=== PATIENT | male | born 1975 | race Caucasian/White ===

== ENCOUNTER 2019-10-08 00:05 | Emergency (ER) | payer SELFPAY ==
[2019-10-08 00:07] VITALS: BP 134/90; PULSE 78; RESP 18; TEMP 36.8; O2SAT 98; BMI 26.9
--- NOTE | 2019-10-08 00:25 | ED.VIS.GEN ---
History of Present Illness Chief Complaint: Abd Pain Informant: Patient Narrative: Stated approximately 5 hours ago he had epigastric abdominal pain. He had 3 episodes of emesis. He describes a sharp and dull pain in the epigastric region. No radiation. Never had this before. Tried Tums with minimal relief. Current severity is moderate. Normal bowel movements. He feels a lot of bowel gas. No bad food exposures. No sick contacts. No previous abdominal surgeries. Worsened by nothing. Relieved by nothing. - Past Medical History (1) HTN (hypertension) Status: Acute (2) Peritonsillar abscess Status: Acute (3) Pharyngitis Status: Acute (4) Tachycardia Status: Acute (5) Urinary retention Status: Acute Past Medical History - Allergies and Home Meds Allergies/Adverse Reactions: Allergies No Known Allergies Allergy (Verified 10/08/19 00:09) Primary Care Physician: Care Physician,No Primary [Primary Care Provider] - Prior records reviewed: Yes Past Medical History: - - See problem list Surgical History: - - Tonsillar abscess Smoking Status: Light Smoker (<10/day) Alcohol: None Drugs: None - Family History Maternal Family History: Reports: No pertinent history Sibling Family History: Reports: No pertinent history Review of Systems General: Denies: Chills, Fever, Sweats Eyes: Denies: Visual changes - bilaterally, Diplopia ENT: Denies: Rhinorrhea, Sore throat Cardiovascular: Denies: Chest pain, Palpitations Respiratory: Reports: -. Denies: Dyspnea, Cough, Dyspnea on exertion Gastrointestinal: Reports: Abdominal pain, Nausea, Vomiting. Denies: Diarrhea, Melena, Hematochezia Genitourinary: Denies: Dysuria, Hematuria, Frequency Musculoskeletal: Denies: Back pain, Extremity Pain Skin: Denies: Rash, Wounds Neurological: Denies: Headache, Weakness, Numbness Physical Exam Vital Signs/Narrative: Vital Signs Temp Pulse Resp BP Pulse Ox 10/08/19 00:07 98.3 F 78 18 134/90 H 98 General: Well nourished, Well developed, No Acute Distress Head: Normocephalic, Atraumatic Eyes: Perrl, EOMI ENT: Moist mucous membranes, No rhinorrhea Neck: Supple, Nontender Cardiovascular: Regular rate, Regular rhythm, No murmurs Respiratory: No distress, CTA bilaterally, Chest nontender Abdomen: Soft, Nondistended, Normal bowel sounds, Tender - Tender to to palpation epigastric. No masses or hernia.. Negative for: Nontender, No masses, Guarding, Rebound tenderness, Hyperactive bowel sounds, Hypoactive bowel sounds, Hepatomegaly, Splenomegaly, Mass, Pulsatile mass, Ventral hernia, Inguinal hernia, Umbilical hernia, Hernia reducible, Hernia irreducible, Psoas sign, Obturator sign, Rovsig's sign, Mosley's sign, - Back: Nontender, Normal Inspection Extremities: Nontender, No edema Skin: Normal color, No rash Neurological: Alert, Oriented x3, Cranial nerves II-XII grossly intact, Normal Strength, Normal Sensation Psychological: Normal affect, Normal Mood Diagnostic/Tx/Re-eval - Medical Decision Making Patient given IV fluids morphine and Zofran. Lab work obtained. Lab work shows a white count of 17.5. Electrolytes liver function and lipase normal. CT abdomen pelvis shows findings could suggestive of enteritis. There is air-fluid levels in the small bowel without a transition point. No bowel obstruction. No inflammatory changes. On reevaluation the patient's pain is resolved. He is resting comfortably. No vomiting. Feels much better. At this time he will follow-up as an outpatient. I do not feel he needs antibiotics for this. This is likely viral in nature. Will return if he worsens ED Disposition - Plan for ED Patient: Disposition: Home or Assisted Living Diagnosis: Gastroenteritis Instructions: ED Food Poison Or Gastroenteritis Prescriptions: Dicyclomine HCl [Bentyl] 20 mg PO TIDAC #20 cap Prescription Printed Ondansetron [Zofran Odt] 8 mg PO Q8H PRN PRN #20 tab PRN Reason: Nausea Prescription Printed Referrals: Milind Rosario MD [STAFF PHYSICIAN] -
[2019-10-08] MEDS: Ondansetron 4 MG/2 ML Vial IV (00:31)
[2019-10-08] MEDS: 0.9% Normal Saline 1,000 ML 1000 ML IV (00:31)
[2019-10-08] MEDS: Morphine 4 MG/ML Syringe IV (00:32)
[2019-10-08 00:35] LABS: Absolute Lymphocyte Count 1.84 X10^3/uL (0.83-4.51); Absolute Neutrophil Count 14.4 X10^3/uL (2.0-7.7); Basophil# 0.04 X10^3/uL; Basophil% 0.2 % (0-1); Eosinophil# 0.15 X10^3/uL; Eosinophils% 0.9 % (0-5); Hematocrit 43.8 % (40-54); Hemoglobin 14.9 g/dL (13.0-16.5); Lymphocyte # 1.84 X10^3/ul (4.0); Lymphocyte % 10.5 % (19-41); Mean Corpuscular Hgb 30.3 pg (27.0-32.0); Mean Platelet Vol. 9.6 fl (6.2-12.0); Monocyte# 0.96 X10^3/uL; Monocyte% 5.5 % (0-10); NRBC Flagged by Analyzer 0 % (0-5); Neutrophil # 14.41 X10^3/uL (2.7-7.7); Neutrophil % 82.6 % (47-70); Platelet Count 284 K/mm3 (150-450); RBC Distribution Width CV 13.3 % (11.6-14.6); RBC Distribution Width SD 42.8 fl (35.1-43.9); Red Blood Count 4.92 M/mm3 (4.6-6.2); White Blood Count 17.5 K/mm3 (4.4-11.0)
[2019-10-08 01:20] LABS: ALB/GLOB Ratio 1.2 RATIO (0.9-2.4); AST(SGOT) 13 U/L (15-37); Alanine Aminotransfer ALT/SGPT 25 U/L (16-61); Albumin, Serum 4.6 g/dL (3.2-5.0); Alkaline Phosphatase 56 U/L (45-117); Anion Gap 6 (5-15); BUN 22 mg/dL (7-18); BUN/Creat Ratio 21.2 RATIO (10-20); Calcium,Total 9.4 mg/dL (8.5-10.1); Chloride 106 mmol/L (98-107); Creatinine, Serum 1.04 mg/dL (0.70-1.30); EST Glomerular Filtration Rate 82 mL/min (>60); Est Glom Filt Rate - Afr Amer 99 mL/min (>60); Estimated Creatinine Clearance 105.38 ml/min; Globulin 3.9 g/dL (2.2-4.2); Glucose 145 mg/dL (74-106); Lipase 79 U/L (73-393); Protein, Total 8.5 g/dL (6.4-8.2); Sodium Level 140 mmol/L (136-145)
--- NOTE | 2019-10-08 01:21 | CT_ITS ---
HISTORY: C/O LOWER ABD PAIN, UMBILICAL REGION X 6 HOURS WITH EMESIS X3 AND NAUSEA, GASSY, ELEVATED WBC TECHNIQUE: Helically acquired images were obtained of the abdomen and pelvis following the intravenous administration of ml of 100mL Isovue-300 Iodinated contrast. 2D reformats. No oral contrast was administered. A radiation dose optimization technique was used for this scan. COMPARISON: None FINDINGS: # of images incl. paperwork: 412 LUNG BASES: Clear. CT abdomen: Bones are unremarkable. The gallbladder remains. Liver, spleen, pancreas, and adrenal glands, are normal. Small hypodense lesion on the superior lateral aspect of the left kidney statistically represents a benign simple cyst. The right kidney is normal.. The aorta is normal. CT pelvis: No ascites is present. The prostate gland is not enlarged. The appendix is normal. Series 2 image 83. The bladder is mostly decompressed. There is abnormal fluid distention with air-fluid levels to many loops of small bowel. There is no direct transition. Some of this distention is also present within the terminal ileum. No focal bowel wall thickening is perceived. Some diverticulosis within the sigmoid colon. CT/Abdomen/Pelvis W IV Cont ONLY IMPRESSION: Findings suggestive of enteritis. Individualized dose optimization techniques were used for this CT. at 0231 Reported and signed by: Dejon Man MD Electronically Signed: Dejon Man MD at 2:30 EDT Tel , Service support ,
[2019-10-08 02:09] VITALS: RESP 16
[2019-10-08 02:52] VITALS: BP 122/79; PULSE 70; RESP 16; O2SAT 98
== END 2019-10-08 02:54 | disposition home or self-care (01) ==
PROVIDERS: Emergency Provider Emergency Medicine
DX: K52.9 Noninfective gastroenteritis and colitis, unspecified (principal); I10 Essential (primary) hypertension; F17.200 Nicotine dependence, unspecified, uncomplicated
CPT/HCPCS: 74177; 80053; 83690; 85025; 96361; 96374; 96375; 99283; J7030; Q9967; A4216; J2405

== ENCOUNTER 2020-01-01 17:14 | Emergency (ER) | payer SELFPAY ==
[2020-01-01 17:15] VITALS: BP 140/84; PULSE 84; RESP 15; TEMP 36.7; O2SAT 98; BMI 24.7
--- NOTE | 2020-01-01 17:55 | ED.VIS.GEN ---
History of Present Illness Chief Complaint: Abscess Informant: Patient Narrative: Patient presents to the emergency department for suspected abscess of his middle back. He has had abscesses before in the past but never in this location. He first noticed this about a week ago. Lying on it as well as sitting in a car makes his symptoms worse. He denies any systemic symptoms including any fever/chills or nausea/vomiting. The spot is not overly tender to palpation. He has not tried taking anything for this. He denies any known history of MRSA. He is not a diabetic. He does not feel like it has been getting much larger over the past week. Past Medical History - Allergies and Home Meds Allergies/Adverse Reactions: Allergies No Known Allergies Allergy (Verified 01/01/20 17:14) Primary Care Physician: Olya Way MD [Primary Care Provider] - Prior records reviewed: Yes Past Medical History: None Surgical History: - - Tonsillar abscess Smoking Status: Light Smoker (<10/day) - Family History Maternal Family History: Reports: No pertinent history Sibling Family History: Reports: No pertinent history Review of Systems All systems negative except as indicated General: Denies: Chills, Fever, Sweats Eyes: Denies: Visual changes - bilaterally ENT: Denies: Sore throat Cardiovascular: Denies: Chest pain, Palpitations Respiratory: Denies: Dyspnea, Cough, Dyspnea on exertion Gastrointestinal: Denies: Abdominal pain, Nausea, Vomiting Musculoskeletal: Denies: Back pain, Extremity Pain Skin: Denies: Rash, Wounds Neurological: Denies: Headache, Weakness, Numbness Physical Exam Vital Signs/Narrative: Vital Signs Temp Pulse Resp BP Pulse Ox 01/01/20 17:15 98.0 F 84 15 140/84 H 98 Inital Vital Signs reviewed: Yes General: Well nourished, Well developed, No Acute Distress Head: Normocephalic, Atraumatic Eyes: Perrl, EOMI ENT: Moist mucous membranes, No rhinorrhea Neck: Supple, Nontender Cardiovascular: Regular rate, Regular rhythm Respiratory: No distress, CTA bilaterally, Chest nontender Abdomen: Soft, Nondistended Back: Nontender, Normal Inspection Extremities: Nontender, No edema Skin: Normal color, No rash, - - Patient has what appears to be a lipoma. No significant tenderness with palpation. No overlying skin changes. It is freely movable. No significant fluctuation. It is approximately 2.5 cm in diameter. Located mid thoracic region. Neurological: Alert, Oriented x3 Psychological: Normal affect, Normal Mood Diagnostic/Tx/Re-eval - Medical Decision Making Patient presents to the ED for suspected abscess. I believe that this is a lipoma. Bedside ultrasound did not show any large fluid collection and was actually a more solid mass. It is freely movable. No significant tenderness. I did give him a referral for general surgeon for possible excision given his symptoms when lying and sitting on it. Otherwise patient be discharged home in stable condition. Warning signs and symptoms for which to return to the ED reviewed with him. He understands and is agreeable this plan. ED Disposition - Plan for ED Patient: Disposition: Home or Assisted Living Diagnosis: Lipoma of back Instructions: ED Lipoma No Tx Referrals: Olya Way MD [Primary Care Provider] - Fauzia Pope MD [STAFF PHYSICIAN] - As Needed
== END 2020-01-01 18:18 | disposition home or self-care (01) ==
LOC: ED 18:14
PROVIDERS: Emergency Provider Emergency Medicine; PCP Internal Medicine
DX: D17.1 Benign lipomatous neoplasm of skin and subcutaneous tissue of trunk (principal); F17.200 Nicotine dependence, unspecified, uncomplicated
CPT/HCPCS: 99282

== ENCOUNTER → 2020-01-22 | Outpatient (CLI) | payer MEDICAID, SELFPAY ==
[2020-01-01 17:15] VITALS: BMI 24.7
--- NOTE | 2020-01-22 16:38 | US_ITS ---
STUDY: RIGHT CHEST ULTRASOUND REASON FOR EXAM: Male, 44 years old. Painful mass in the left posterior chest wall. TECHNIQUE: Targeted ultrasound examination of the left posterior chest wall in the region of the palpable mass was performed. COMPARISON: None. FINDINGS: There is a 3.5 x 4 x 2.4 cm complex heterogeneous cystic lesion in the left posterior chest wall and corresponding to the palpable abnormality. US/Ext Non Vasc Limited/Soft Tiss IMPRESSION: Complex mass in the left posterior chest wall likely due to abscess or less likely hematoma. Electronically Signed: Pradeep Chen MD at 9:56 EDT Tel , Service support ,
== END | disposition home or self-care (01) ==
LOC: US 16:33
PROVIDERS: PCP Internal Medicine
DX: L98.9 Disorder of the skin and subcutaneous tissue, unspecified (principal)
CPT/HCPCS: 76882

== ENCOUNTER → 2020-01-26 | Outpatient (CLI) | payer MEDICAID, SELFPAY | END | disposition home or self-care (01) | LOC: LABSPEC 15:20 | PROVIDERS: PCP Internal Medicine; Referring Provider Surgery; Visit Provider Surgery | DX: L02.212 Cutaneous abscess of back [any part, except buttock and flank] (principal) | CPT/HCPCS: 87070; 87075; 87205 ==

== ENCOUNTER 2020-02-11 08:48 | Day surgery (SDC) | payer MEDICAID, SELFPAY ==
[2020-01-26 14:51] VITALS: BMI 24.4
--- NOTE | 2020-02-11 08:54 | HP.PCM_ITS ---
Problem List (1) Infected sebaceous cyst Status: Acute History of Present Illness Date of Admission: 02/11/20 The patient is a 44 year old M who presented to the office and had 2 drainages of this infected back cyst. The patient reports improvement but is still having some mild drainage and sebaceous material. Past Medical History Medical History: Medical History Peritonsillar abscess (Acute) J36 Tachycardia (Acute) R00.0 Urinary retention (Acute) R33.9 HTN (hypertension) (Acute) I10 Pharyngitis (Acute) J02.9 Allergies No Known Allergies Allergy (Verified 02/08/20 12:16) Home Medications: Ambulatory Orders Medication Instructions Recorded NK 01/01/20 Surgical History: Surgical History (Last Updated 01/26/20 @ 14:51 by Jacquie Mena) History of throat surgery Z98.890 Surgical History: - - Tonsillar abscess Smoking Status: Current every day smoker Tobacco Use: Cigarettes - *Family History Maternal History Items: No pertinent history Sibling History Items: No pertinent history Review of Systems Constitutional: Denies: Anorexia HEENT: Denies: Difficulty Swallowing Cardiovascular: Denies: Chest Pain Respiratory: Denies: Cough Gastrointestinal: Denies: Abdominal Pain Genitourinary: Denies: Dysuria Skin: Denies: Jaundice Neurological: Denies: Balance problems Psychiatric: Denies: Anxiety VTE Information - Inpt Only VTE Present on Admission: No VTE Mechan Device Prophylaxis: SCD's - Physical Exam Vitals/I&O's: Body Mass Index (BMI) 24.4 General: Alert, Oriented x3 Neck: No JVD Lungs: Normal air movement Cardiovascular: Regular rate, Regular Rhythm Abdomen: Soft, Non Tender, Non-Distended Skin: - - Sebaceous cyst on the mid back which has some inflammation Microbiology Past 72 Hours 02/10/20 16:40 Interface Orders - Final Current Medications Cefazolin Sodium 2 gm/ Sodium (Chloride) 110 mls @ 150 mls/hr IV PREOP ONE Stop: 02/11/20 10:53 Assessment/Plan All Active Problems Infected sebaceous cyst (Acute) Peritonsillar abscess (Acute) Tachycardia (Acute) Urinary retention (Acute) HTN (hypertension) (Acute) Pharyngitis (Acute) 44-year-old male with infected back cyst 1. Patient has an infected sebaceous cyst of the back. He has been drained twice in the office and has improved but it will not resolve and I recommend excision of the entire cyst. I recommended doing it in the operating room as it is quite large and deep. I discussed this with the patient in detail. I discussed the risks of bleeding and infection. I discussed loosely closing the incision to allow for drainage. The patient understands and will proceed with excision of infected sebaceous cyst in the operating room. Pee Dominguez MD Pager: [facility] [address] [place] [address] Office:
[2020-02-11 09:22] VITALS: BP 113/65; PULSE 63; RESP 16; TEMP 36.8; O2SAT 99; BMI 25.0
[2020-02-11] MEDS: Lactated Ringers 1,000 ML 100 ML IV (09:29)
--- NOTE | 2020-02-11 10:10 | CYST_PTH ---
PATIENT: UDAY FERNANDES [place] [facility] [place][id number] AGE/SX: 44/M ROOM: RE02/11/[address]: Dr. Pee Dominguez MD : 1975 BED: DIS: 02/11/2020 SPEC #: [id number] RECD: 02/11/20 10:59 STATUS: MARGY KAURDayna #: [id number] YULY: 02/11/20 10:[address]: Pee Dominguez DEPT: SURGICAL PATHOLOGY RECD BY: Cristofer Chen ENTERED: 02/11/20 11:24 SP TYPE: Cyst OTHR DR: Dr. Olya Way MD Tissues: CYST Procedures: Surgery Specimen Level III HEADER OPERATION: Back cyst excision PRE-OP DIAGNOSIS: Infected sebaceous cyst TISSUE SUBMITTED: Cyst wall and skin MICROSCOPIC DIAGNOSIS Cyst wall and skin: Pieces of skin with underlying tissue with acute and chronic inflammation and foreign body giant cell reaction. SJ:verna 02/12/20 COMMENT The findings may represent a ruptured and inflamed epidermal inclusion cyst. MICROSCOPIC DESCRIPTION Slides are reviewed. GROSS DESCRIPTION Received in fixative is one container labeled with the patient's name and designated cyst wall and skin. The specimen consists of two irregular fragments of jimenez-yellow fibrofatty tissue ranging in size from 3 to 4 cm. The largest fragments has an ellipse of unremarkable skin attached measuring 4 x 0.5 cm. Changer Fixer sections are submitted in two cassettes. / AM:verna 02/11/20 TC:5 CPT: 81146
[2020-02-11] MEDS: Cefazolin 2 GM in 0.9% Normal Saline 100 ML IV (10:13)
--- NOTE | 2020-02-11 10:49 | PCM.OPRPT ---
Problem List (1) Infected sebaceous cyst Status: Acute Report of Operation Date of Procedure: 02/11/20 Pre-Operative Diagnosis: Infected sebaceous cyst of the back Post-Operative Diagnosis: Same Surgery/Procedure Performed:: Excision of back cyst Specimen's removed: Back cyst Description of Procedure: Patient was brought back to the operating room and placed in prone position and MAC anesthesia was induced. An area around the cyst was marked and anesthetized with local anesthetic. Incision was made and skin was excised overlying the cyst and the cyst wall was excised sharply. The overlying skin measured approximately 4 cm. Hemostasis was obtained using electrocautery and the cavity was irrigated copiously and suctioned dry. The skin was closed with interrupted 3-0 Vicryl sutures as well as interrupted 3-0 nylon sutures. A bandage was applied and the patient was taken back in stable condition. - Admit VTE Documentation VTE Mechan Device Prophylaxis: SCD's
[2020-02-11 10:50] VITALS: BP 113/65; BP 134/87; PULSE 64; RESP 16; TEMP 36.4; O2SAT 98
[2020-02-11 10:55] VITALS: BP 113/65; BP 143/94; PULSE 56; RESP 16; O2SAT 98
--- NOTE | 2020-02-11 10:56 | PCM.DC ---
- Discharge Diagnoses Current Active Problems: Current Active and Chronic Problems Infected sebaceous cyst (Acute) You will use the following diet at home:: Regular Your food should be the consistency of: Regular Discharge Activity: No Restrictions, May Shower Call your doctor if your incision/area has: Continuous Slow Oozing, Sudden Increased Bleeding, Increased Pain/ Swelling, Increased Redness, Foul Smelling Discharge, Swelling at the incision site Call your doctor if you observe: Fever of 101 or Higher Allergies/Adverse Reactions: Allergies No Known Allergies Allergy (Verified 02/11/20 09:10) Medications to take at Discharge Oxycodone HCl/Acetaminophen [Percocet 5-325 mg Tablet] 1 tab PO Q6H PRN PRN 7 Days #15 tablet 02/11/20 The following prescriptions were given: Oxycodone HCl/Acetaminophen [Percocet 5-325 mg Tablet] 1 tab PO Q6H PRN PRN 7 Days #15 tablet PRN Reason: Pain Score 4-10/10 Transmission Status: Sent to [facility] Test Results: Test results from this visit will be discussed in further detail at your follow-up appointment, if applicable. Please Follow Up With: Pee Dominguez MD When: Please call to schedule 1 week follow up appointment. [phone]
[2020-02-11 11:00] VITALS: BP 113/65; BP 148/104; PULSE 59; RESP 16; O2SAT 99
[2020-02-11 11:05] VITALS: BP 113/65; BP 161/97; PULSE 58; RESP 16; TEMP 36.3; O2SAT 98
[2020-02-11] MEDS: oxyCODONE 5 MG Tablet PO (11:38)
[2020-02-11] MEDS: Acetaminophen 325 MG Tablet PO (11:38)
[2020-02-11 12:19] VITALS: BP 113/65; BP 137/100; PULSE 54; RESP 18; TEMP 36.6; O2SAT 100
== END 2020-02-11 12:20 | disposition home or self-care (01) ==
LOC: SDC 08:50 → AC 08:51
PROVIDERS: PCP Internal Medicine; Referring Provider Surgery; Visit Provider Surgery
PROC: (CPT 11404; principal; 2020-02-11 10:00)
DX: L72.3 Sebaceous cyst (principal); I10 Essential (primary) hypertension; F17.210 Nicotine dependence, cigarettes, uncomplicated
CPT/HCPCS: 00300; 11404; 87426; 88304; J7120; J2405

== ENCOUNTER 2020-04-01 10:35 | Emergency (ER) | payer MEDICAID, SELFPAY ==
[2020-04-01 10:37] VITALS: BP 133/88; PULSE 72; RESP 17; TEMP 36.7; O2SAT 100; BMI 24.9
--- NOTE | 2020-04-01 10:56 | ED.DCSUM_ITS ---
- ER Visit Summary Date of Service: 04/01/20 Chief Complaint: [Dog bite to left wrist] History of Present Illness: The patient is a 44 M [resents to the emergency department after sustaining a dog bite this morning to his left wrist. 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 Patient is right-hand dominant. Patient states that the dog appeared to have a collar and it did not appear ill. Patient states that he is walked at neighborhood many times in the past and is never seen the dog. The dog then was kicked and it ran off. Patient otherwise has no medical history.] Physical Examination: [HECRISTIN-PERRLA, EOMI. Cranial nerves II through XII grossly intact. TMs clear. Mucous membranes moist. No adenopathy. Cardiovascular-regular rate and rhythm without murmur or ectopy Lungs-clear to auscultation, chest wall stable without crepitus or subcu emphysema Abdomen-normoactive bowel sounds, soft, nontender, no rebound or rigidity, no peritoneal signs. Extremities-intact ?4, normal range of motion, normal pulses. Left wrist- patient has a 2.5 cm laceration over the dorsal radial aspect of the wrist. The wound does gape open however there is no active bleeding. The wound does not appear to be deep beyond the dermis and no evidence of involvement of any tendon structures. Patient has normal range of motion of all digits. He is neurovascular intact distally.] Test Results: [None indicated] Emergency Department Course and Treatment: [Laceration repair-wound sterilely draped and prepped. Wound cleansed with Shur-Clens irrigated copious saline. Wound anesthetized with 1% lidocaine total 4 cc. Using 5-0 nylon a total of 1 single interrupted sutures loosely placed to approximate the wound edges. Clean dressing applied. Patient tolerated procedure well. I did use rabies immunoglobulin to inject into the wound and around the wound. The rest of the immunoglobulin was given IM.] Treatment Plan: [Patient will be treated with rabies immunoglobulin given that he does not know the dog and the dog cannot be observed.] Will be treated with Augmentin for 10 days. Disposition: [Discharged home in stable condition. Patient advised to follow-up with his primary care physician in 10 days for suture removal. Patient to return if increasing pain, redness, swelling, purulent drainage.] Impression: [Dog bite left wrist Rabies prophylaxis] This note was generated with [employer] dictation software. It may contain incorrect words, spelling, and punctuation that were not noted in review of the chart prior to signing ED Disposition - Plan for ED Patient: Referrals: Olya Way MD [Primary Care Provider] -
--- NOTE | 2020-04-01 11:02 | ED.DEP ---
ED Disposition - Plan for ED Patient: Instructions: ED Dog Bite, Rabies Immune Globulin (Human) Solution for injection Prescriptions: Amox/Clavulanate Tablet [Augmentin Tablet] 875 mg PO Q12H #20 tab Prescription Printed Referrals: Olya Way MD [Primary Care Provider] - 10 Day for suture removal
[2020-04-01] MEDS: Diphth,Pertuss(Acell),Tet Vac 0.5 ML Vial IM (11:32)
[2020-04-01] MEDS: Amox/Clavulanate 875 MG Tablet PO (11:33)
[2020-04-01] MEDS: Lidocaine 1% (20 ml mdv) 20 ML Vial 4 ML INFILT (12:09)
[2020-04-01] MEDS: Rabies Vaccine,Human Diploid 2.5 UNITS Vial IM (12:09)
[2020-04-01] MEDS: Rabies Immune Globulin/PF 300 UNIT/ML, 1 ML VIAL 210 UNIT IM (12:12)
[2020-04-01] MEDS: Rabies Immune Globulin/PF 300 UNIT/ML, 5 ML VIAL 1500 UNIT IM (12:12)
[2020-04-01 12:28] VITALS: PULSE 75; RESP 16; O2SAT 99
== END 2020-04-01 12:29 | disposition home or self-care (01) ==
LOC: ED 11:25
PROVIDERS: Emergency Provider Emergency Medicine; PCP Internal Medicine
DX: S61.512A Laceration without foreign body of left wrist, initial encounter (principal); I10 Essential (primary) hypertension; Z72.0 Tobacco use; W54.0XXA Bitten by dog, initial encounter; Y93.K1 Activity, walking an animal; Y92.480 Sidewalk as the place of occurrence of the external cause; Y99.8 Other external cause status
CPT/HCPCS: 12001; 90375; 90675; 90715; 96372; 99285

== ENCOUNTER 2020-10-12 17:57 | Emergency (ER) | payer MEDICAID, SELFPAY ==
[2020-10-12 17:57] VITALS: BP 128/74; PULSE 80; RESP 18; TEMP 36.4; O2SAT 98; BMI 22.6
--- NOTE | 2020-10-12 19:44 | EDS_ITS ---
HPI History of Present Illness Chief Complaint: Foreign Body Narrative Narrative: Patient presents with right wrist foreign body after mulching, he removed some piece of wood but was unable to remove all of them. [facility] Medical History (Updated 10/12/20 @ 19:[address] Milind Stanford MD) HTN (hypertension) infected sebaceous cyst back Peritonsillar abscess Pharyngitis Tachycardia Urinary retention Home Medications amoxicillin-pot clavulanate 875 mg PO Q12H #20 tab 04/01/20 [Rx Last Taken Unknown] cephalexin 500 mg PO Q6 #20 cap 10/12/20 [Rx Last Taken Unknown] Allergy/AdvReac Type Severity Reaction Status Date / Time No Known Allergies Allergy Verified 10/12/20 17:59 Surgical History history excision back cyst (~02/11/20) History of throat surgery Social History (Updated 02/22/20 @ 08:[address] Pee Dominguez MD) Smoking Status: Current every day smoker tobacco type: cigarettes ROS ROS ED ROS Narrative Past medical history: none Medications: Reviewed Social history: Noncontributory Review of systems: Musculoskeletal: Foreign body as in HPI Skin: No other abrasions or lacerations Neurological: No weakness or paresthesias Hematologic: No easy bleeding or easy bruising EXAM Physical Exam Narrative Exam Narrative: Physical exam General: Patient does not appear in significant distress . Cardiovascular: Normal distal pulses Extremities: Right wrist region in the volar region reveals a punctate srinivasa with a foreign body. Skin: No abrasions, no lacerations Neurological: Normal strength and sensation Const Vital Signs: 10/12/20 17:57 Temperature 97.6 F L Temperature Source Temporal Pulse Rate 80 Respiratory Rate 18 Blood Pressure 128/74 H Blood Pressure Mean 92 Pulse Ox 98 Oxygen Delivery Method Room Air MDM MDM MDM Narrative Medical decision making narrative: Procedure note: Verbal consent 1% lidocaine I cleaned the wound with Shur-Clens I made a small incision with an 11 blade I used splinter forceps for removal I removed the foreign body Patient tolerated procedure well. ED course: Foreign body was removed, patient will be placed on antibiotics and I will discharge him. If he gets any worse he is to return. Discharge Plan Triage Chief Complaint: Foreign Body ED Provider: Milind Stanford Dx/Rx/DC Orders Clinical Impression: Foreign body (FB) in soft tissue Instructions: ED Foreign Body, Soft Tissue (Removed) Prescriptions: New cephalexin 500 mg capsule 500 mg PO Q6 Qty: 20 RF: 0 No Action amoxicillin-pot clavulanate 875 MG tablet 875 mg PO Q12H Qty: 20 RF: 0 Primary Care Provider: Olya Way Referrals: Olya Way MD [Primary Care Provider] - 2 Days
[2020-10-12] MEDS: Cephalexin 250 MG Capsule 500 MG PO (19:55)
== END 2020-10-12 19:50 | disposition home or self-care (01) ==
LOC: ED 19:30
PROVIDERS: Emergency Provider Emergency Medicine; PCP Internal Medicine
DX: S61.541A Puncture wound with foreign body of right wrist, initial encounter (principal); I10 Essential (primary) hypertension; F17.210 Nicotine dependence, cigarettes, uncomplicated; Y93.H2 Activity, gardening and landscaping; Y93.89 Activity, other specified; Y92.007 Garden or yard of unspecified non-institutional (private) residence as the place of occurrence of the external cause; Y99.8 Other external cause status
CPT/HCPCS: 10120; 99282

== ENCOUNTER 2020-11-19 21:57 | Emergency (ER) | payer MEDICAID, SELFPAY ==
[2020-11-19 21:59] VITALS: BP 121/71; PULSE 75; RESP 16; TEMP 36.2; O2SAT 98; BMI 21.7
[2020-11-19] MEDS: Triamcinolone Acetonide 40 MG/ML Vial 80 MG IM (22:29)
[2020-11-19] MEDS: Famotidine 20 MG Tablet 40 MG PO (22:29)
[2020-11-19] MEDS: DiphenhydrAMINE 25 MG Capsule PO (22:29)
--- NOTE | 2020-11-19 22:31 | EX.ED.DYSGE1 ---
HPI History of Present Illness Chief Complaint: Allergic Reaction Informant: patient and spouse/S.O. Narrative Narrative: 45-year-old male was on a walk with his child and their dog. At approximately 1500 hrs. they came across a large swarm of hornets and the patient received multiple stings to his lower extremities. He notes increased swelling particularly of the left foot. He took some ibuprofen. He states that his child and the dogs got stung but they are fine. The patient estimates that he was stung about 15 times PFSH PFSH Medical History HTN (hypertension) infected sebaceous cyst back Peritonsillar abscess Pharyngitis Tachycardia Urinary retention Home Medications amoxicillin-pot clavulanate 875 mg PO Q12H #20 tab 04/01/20 [Rx Last Taken Unknown] cephalexin 500 mg PO Q6 #20 cap 10/12/20 [Rx Last Taken Unknown] Allergy/AdvReac Type Severity Reaction Status Date / Time No Known Allergies Allergy Verified 11/19/20 21:59 Surgical History history excision back cyst (~02/11/20) History of throat surgery Social History (Updated 11/19/20 @ 22:[address] Tapan Garcia DO) Smoking Status: Current every day smoker tobacco type: cigarettes substance use type: does not use ROS ROS ED Constitutional Constitutional ED: Denies chills or weight loss Eyes Eyes: Denies change in vision or diplopia ENT ENT ED: Denies ear pain, rhinorrhea or sore throat Cardiovascular Cardiovascular: Denies chest pain, orthopnea, palpitations or racing heartbeat Respiratory/Chest Respiratory/Chest: Denies cough, dyspnea or orthopnea Gastrointestinal Gastrointestinal: Denies abdominal pain, diarrhea, nausea or vomiting Genitourinary Genitourinary ED: Denies dysuria, hematuria or urinary frequency Musculoskeletal Musculoskeletal: Denies arthralgias or myalgias Integumentary Reports rash; Denies abscess Neurologic Neurologic: Denies headache(s) or weakness Psychiatric Psychiatric: Denies anxiety, depression, suicidal ideation or suicidal thoughts Endocrine Endocrinology: Denies polydipsia, polyphagia or polyuria Allergic/Immunologic Allergic/Immunologic ED: Denies mouth swelling, tongue swelling or urticaria EXAM Physical Exam Const Vital Signs: 11/19/20 21:59 Temperature 97.1 F L Temperature Source Temporal Pulse Rate 75 Respiratory Rate 16 Blood Pressure 121/71 H Blood Pressure Mean 87 Pulse Ox 98 Oxygen Delivery Method Room Air Positive well nourished and well developed General Appearance ED: well developed HEENT Reports normocephalic, head/scalp atraumatic and moist mucous membranes Eyes PERRL and EOMs intact bilaterally Neck no lymphadenopathy, supple and no JVD Resp normal respiratory effort and clear to auscultation bilaterally Cardio regular rate, regular rhythm and no murmurs GI normal to inspection, nondistended, normoactive bowel sounds and non-tender Palpation: soft Back/Spine no CVA tenderness and normal ROM Extremity Extremity Narrative: Patient with multiple apparent stings to the lower extremities. Particular the left foot shows a local reaction showing swelling over the dorsum of the foot some mild erythema. I do not see any stingers in any of the wounds. General Extremety ED: Negative for edema General Extremity: Negative for edema Neuro oriented x3 and CN's II-XII intact bilaterally Sensorium / Orientation: alert Motor Exam: strength 5/5 throughout Psych mental status grossly normal Mood & Affect: Negative for depressed or tearful Skin no rashes or lesions noted and no wounds MDM MDM MDM Narrative Medical decision making narrative: Patient was given Benadryl and Pepcid. I will give him a dose of Kenalog. I would recommend continued Benadryl and Pepcid at home. Patient understands that the swelling to the left foot will probably be more significant tomorrow as well the erythema which should decrease after that. Discharge Plan Triage Chief Complaint: Allergic Reaction ED Provider: Tapan Garcia Dx/Rx/DC Orders Clinical Impression: Hornet sting Instructions: ED Insect Sting, Local Reaction Prescriptions: No Action amoxicillin-pot clavulanate 875 MG tablet 875 mg PO Q12H Qty: 20 RF: 0 cephalexin 500 mg capsule 500 mg PO Q6 Qty: 20 RF: 0 Primary Care Provider: Olya Way Referrals: Olya Way MD [Primary Care Provider] - As Needed Activity Restrictions/Additional Instructions: A shot of Kenalog will stay with you for a few days. I recommend Benadryl 25 mg every 6-8 hours. I also recommend Pepcid 20 mg twice a day while your symptoms last. Disposition Disposition: Home, Self Care
== END 2020-11-19 23:01 | disposition home or self-care (01) ==
LOC: ED 22:57
PROVIDERS: Emergency Provider Emergency Medicine; PCP Internal Medicine
DX: T63.451A Toxic effect of venom of hornets, accidental (unintentional), initial encounter (principal); I10 Essential (primary) hypertension; F17.210 Nicotine dependence, cigarettes, uncomplicated
CPT/HCPCS: 96372; 99283

== ENCOUNTER 2024-01-07 23:09 | Emergency (ER) | payer SELFPAY ==
[2024-01-07 23:09] VITALS: BP 132/76; PULSE 73; RESP 16; TEMP 36.6; O2SAT 99; BMI 21.7
--- NOTE | 2024-01-07 23:36 | ED.VIS.LOWEX ---
HPI History of Present Illness Chief Complaint: Lower Extremity Injury Informant: patient Narrative Narrative: 48-year-old male presenting to the emergency room with right toe pain. Patient states he dropped a small air compressor on his foot earlier today. He states that the handle broke on it. He had hiking shoes on. He notes swelling and bruising to the third toe. He states that he also has pain in the second and the fourth toe. He denies any external bleeding. He states he has tried ice ibuprofen with no relief PFSH PFSH Medical History infected sebaceous cyst back Peritonsillar abscess Tachycardia Urinary retention HTN (hypertension) Pharyngitis Home Medications ?Medication ?Instructions ?Recorded ?Last Taken ?Type tramadol 50 mg tablet 50 mg PO TID PRN pain #10 tabs 01/08/24 Unknown Rx Allergy/AdvReac Type Severity Reaction Status Date / Time No Known Allergies Allergy Verified 01/07/24 23:10 Surgical History history excision back cyst (~02/11/20) History of throat surgery Social History Smoking Status: Current every day smoker tobacco type: cigarettes substance use type: does not use ROS ROS ED Constitutional Constitutional ED: Denies chills or weight loss Eyes Eyes: Denies change in vision or diplopia ENT ENT ED: Denies ear pain, rhinorrhea or sore throat Cardiovascular Cardiovascular: Denies chest pain, orthopnea, palpitations or racing heartbeat Respiratory/Chest Respiratory/Chest: Denies cough, dyspnea or orthopnea Gastrointestinal Gastrointestinal: Denies abdominal pain, diarrhea, nausea or vomiting Genitourinary Genitourinary ED: Denies dysuria, hematuria or urinary frequency Musculoskeletal Musculoskeletal: Reports other Details: See history of present illness ; Denies arthralgias or myalgias Integumentary Denies abscess or rash Neurologic Neurologic: Denies headache(s) or weakness Psychiatric Psychiatric: Denies anxiety, depression, suicidal ideation or suicidal thoughts Endocrine Endocrinology: Denies polydipsia, polyphagia or polyuria Allergic/Immunologic Allergic/Immunologic ED: Denies mouth swelling, tongue swelling or urticaria EXAM Physical Exam Const Vital Signs: 01/07/24 23:09 Temperature 98 F Temperature Source Temporal Pulse Rate 73 Respiratory Rate 16 Blood Pressure 132/76 H Blood Pressure Mean 94 Pulse Ox 99 Oxygen Delivery Method Room Air Positive well nourished and well developed General Appearance ED: well developed HEENT Reports normocephalic, head/scalp atraumatic and moist mucous membranes Eyes PERRL and EOMs intact bilaterally Neck no lymphadenopathy, supple and no JVD Resp normal respiratory effort and clear to auscultation bilaterally Cardio regular rate, regular rhythm and no murmurs GI normal to inspection, nondistended, normoactive bowel sounds and non-tender Palpation: soft Back/Spine no CVA tenderness and normal ROM Extremity Extremity Narrative: The right third toe is diffusely swollen and purple ecchymotic. There is no subungual hematoma. The distal toe itself is pink. No significant deformity. He has movement of the toes. There appears to be a chronic deformity at the DIP joint General Extremety ED: Negative for edema General Extremity: Negative for edema Neuro oriented x3 and CN's II-XII intact bilaterally Sensorium / Orientation: alert Motor Exam: strength 5/5 throughout Psych mental status grossly normal Mood & Affect: Negative for depressed or tearful Skin no rashes or lesions noted and no wounds MDM MDM MDM Narrative Medical decision making narrative: Differential diagnosis includes fracture contusion sprain strain neurovascular injury crush injury My independent interpretation the plain films of the foot is no acute fracture. Subluxation noted at the DIP joint of the second toe. Patient will utilize ice ibuprofen tramadol for severe pain and a postoperative shoe. Follow-up primary care 10 to 14 days if not improving History & Record Review Discussion w/independent historian: Patient Discharge Plan Triage Chief Complaint: Lower Extremity Injury ED Provider: Tapan Garcia Dx/Rx/DC Orders Clinical Impression: Crush injury of toe Instructions: ED Crush Injury, Foot/Toe Prescriptions: New tramadol 50 mg tablet 50 mg PO TID PRN (Reason: pain) Qty: 10 0RF Primary Care Provider: Olya Way Referrals: Olya Way MD [Primary Care Provider] - 10-14 Days if not better Print Language: Montenegrin Disposition Disposition: Home, Self Care
--- NOTE | 2024-01-07 23:40 | RAD_ITS ---
INDICATION: INJURY 3RD TOE DROPPED SOMETHING ON RT 2ND TOE BRUISING AND PAIN TO 2ND TOE OF RT FOOT EXAMINATION/TECHNIQUE: X-RAY - RIGHT XR Foot Min 3 Views 4 VIEWS COMPARISON: No relevant prior comparison study available FINDINGS: BONES: No fracture demonstrated. JOINTS: Secondary to subluxation at the distal interphalangeal joint, with distal phalanx displaced plantar nearly complete articular surface, with associated plantar flexion. No dislocation. SOFT TISSUES: Unremarkable. RAD/Foot min 3 Views IMPRESSION: Subluxation second digit DIP joint. No evidence of fracture. Electronically Signed: Jemma Padilla MD at 23:56 EDT ,
[2024-01-08] MEDS: traMADol 50 MG Tablet PO (00:26)
[2024-01-08 00:28] VITALS: PULSE 59; RESP 18; TEMP 36.1; O2SAT 98
== END 2024-01-08 00:28 | disposition home or self-care (01) ==
PROVIDERS: Emergency Provider Emergency Medicine; PCP Internal Medicine; Visit Provider Emergency Medicine
DX: S97.121A Crushing injury of right lesser toe(s), initial encounter (principal); I10 Essential (primary) hypertension; F17.210 Nicotine dependence, cigarettes, uncomplicated; W20.8XXA Other cause of strike by thrown, projected or falling object, initial encounter
CPT/HCPCS: 73630; 99283